=== PATIENT | female | born 1950 | race Two or more races ===

== ENCOUNTER 2020-12-20 02:32 | Inpatient (IN) | payer MEDICARE ==
[~2020-12-20] VITALS: Ht 157.5 cm; Wt 53.5 kg
--- NOTE | 2020-12-20 06:23 | NUR ---
GPS RN-NOTES: ADMITTED A 70-YR OLD FEMALE, FROM [facility]. ON VOLUNTARY STATUS. PATIENT STATES SHE WAS HAVING OUTBURST, AGGRESSIVE BEHAVIORS, AND SHE COULD NOT CONTROL HERSELF. UPON FACE TO FACE ASSESSMENT, PATIENT IS A/OX4, DEPRESSED, ANXIOUS, COOPERATIVE AND GUARDED. VERBALIZATION OF FEELINGS ENCOURAGED. DENIED SI/HI/AVH AT THIS TIME. PT'S RIGHTS HANDBOOK AND A GUIDE TO PRESCRIPTION MEDICATIONS GIVEN. IN NO APPARENT DISTRESS NOTED. BELONGINGS WERE INVENTORIED AND CHECKED FOR CONTRABAND. PT. IS UNDER THE PSYCHIATRIC CARE OF DR. VALDOVINOS ORDERS OBTAINED, AND UNDER THE MEDICAL CARE OF SAUL MAYERS. PT. REFUSED PNEUMONIA VACCINE WHEN OFFERED. OFFERED FLU VACCINE, PATIENT AGREED. WILL ENDORSE TO THE DAY SHIFT NURSE TO ADMINISTER VACCINATION. SKIN BODY ASSESSMENT DONE. DENIES PAIN/ DISCOMFORT AT THIS TIME. SAFETY PRECAUTIONS IN PLACE. BED LOCKED AND IN LOWEST POSITION. SIDE RAILS UP X2. WILL CONTINUE TO MONITOR Q15 MINS ROUNDS FOR SAFETY AND BEHAVIOR. ENDORSED TO THE DAY SHIFT NURSE FOR CONTINUITY OF ADMISSION PROCESS.
[2020-12-20 06:30] VITALS: BP 104/59
[2020-12-20] MEDS ORDERED: ACETAMINOPHEN 325 MG TABLET PO PRN (07:00)
[2020-12-20] MEDS ORDERED: MAG HYDROX/AL HYDROX/SIMETH 30 ML UDC PO PRN (07:00)
[2020-12-20] MEDS ORDERED: TEMAZEPAM 7.5 MG CAPSULE PO PRN (07:00)
--- NOTE | 2020-12-20 07:30 | NUR ---
RN NOTES PT AWAKE, WALKING ALONG THE HALLWAY WITH STEADY GAIT, ALERT AND VERBALLY RESPONSIVE, ABLE TO ANSWER ASSESSMENT QUESTION, CALM AND PLEASANT, NO BEHAVIOR PROBLEM NOTED, WILL CONTINUE TO MONITOR.
[2020-12-20 08:00] VITALS: BP 138/72
[2020-12-20] MEDS ORDERED: BLOOD SUGAR DIAGNOSTIC 1 EACH STRIP IN ONE (08:00)
[2020-12-20] MEDS ORDERED: TRAZ-252 PO (09:16)
[2020-12-20] MEDS ORDERED: MIRT15TA7 PO (09:16)
[2020-12-20] MEDS ORDERED: QUET25TA PO (09:16)
[2020-12-20] MEDS ORDERED: ESCI10TA PO (09:16)
[2020-12-20] MEDS ORDERED: INFLUENZA VACCINE 2020-21 0.5 ML DISP.SYRIN IM ONE (10:30)
[2020-12-20] MEDS ORDERED: TEMAZEPAM 15 MG CAPSULE PO PRN (13:30)
[2020-12-20] MEDS: SERTRALINE HCL 50 MG TABLET PO SCH (14:23)
[2020-12-20] MEDS: MAGNESIUM HYDROXIDE 30 ML UDC PO PRN ×2 (14:26→14:27)
--- NOTE | 2020-12-20 14:50 | NUR ---
RN-CO: NOTIFIED DR MANNING REGARDING CONSULT , ORDERED BY DR CANO.
--- NOTE | 2020-12-20 15:17 | NUR ---
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 Dr Sanders who is covering for Dr Duncan seen the patient and evaluate her. During face to face interview, she said that she is not depressed but just anxious. She is worried about her son who lost his benefits from workers compensation. Patient also told Dr Sanders that since she was on Seroquel her problem on twitching on her upper and lower extremities began, also she has problem sleeping. Her affect is appropriate, she is alert and oriented in all spheres, She denied being a smoker and alcohol drinker. "Never in my life I take drugs, alcohol and smoke." She said. All her belongings were screen for contraband, skin check was done and I advised her of her rights as a patient. Dr Childress made his dictation as well.
[2020-12-20 16:00] VITALS: BP 90/54
--- NOTE | 2020-12-20 18:07 | NUR ---
RN NOTES PT IN BED, AWAKE, ALERT AND VERBALLY RESPONSIVE, LIKES TO WALK ALONG THE HALLWAY AT TIMES, NO COMPLAINT AT THIS TIME, INTERACTS WITH STAFF AND OTHER PATIENTS, COMPLIANT WITH MEDICATIONS, INITIALLY REQUESTED FOR A FLU VACCINE BUT REFUSED IT AFTERWARDS, STATED THAT SHE IS AFRAID THAT SHE MIGHT HAVE SIDE EFFECTS, NEEDS ATTENDED, WITH COMPLAINT OF ANXIETY BUT DOES NOT WANT TO TAKE ATIVAN AT THIS TIME, PM MEDS GIVEN.
[2020-12-20 20:30] VITALS: BP 107/60
--- NOTE | 2020-12-20 21:57 | NUR ---
PT RECEIVED AWAKE AND IN BED, ALERT AND ORIENTED X3, DENIES ANY PAIN OR DISCOMFORT. ABLE TO AMBULATE WITH STEADY GAIT, BREATHING IS UNLABORED. PATIENT REQUESTING TO HAVE RESTORIL DC'D STATES SHE IS VERY AFRAID OF POSSIBLE SIDE EFFECTS, WANTS AMBIEN INSTEAD IT HAS HELPED HER IN THE PAST. FIRE EXTINGUISHER REPAIRER INSPECTOR NOTIFIED SANDRA MONTERO ORDERED. PATIENT HAS MILD ANXIETY, DENIES ANY SI/HI/AH/VH AT THIS TIME. PT EDUCATED ON THE USE OF THE CALL LIGHT, BED IN LOWEST POSITION, LOCKED. WILL CONTINUE MONITORING Q15 MIN WITH THE HELP OF STAFF TO MAINTAIN SAFETY.
[2020-12-20] MEDS: ZOLPIDEM TARTRATE 5 MG TABLET PO PRN (22:32)
--- NOTE | 2020-12-20 22:33 | NUR ---
PATIENT REQUESTED SANDRA ASIF FOR INSOMNIA. MEDICATION GIVEN PER ORDERS, PT EDUCATED ON POSSIBLE SIDE EFFECTS. SAFETY PRECAUTIONS IN PLACE. WILL CONTINUE MONITORING CLOSELY.
[2020-12-21] MEDS: ZOLPIDEM TARTRATE 5 MG TABLET PO PRN ×2 (01:16→23:44)
--- NOTE | 2020-12-21 01:17 | NUR ---
PATIENT REQUESTED 2ND DOSE OF AMBIEN 5MG, STATES SHE WAS ABLE TO SLEEP FOR A LITTLE WHILE WITH FIRST DOSE. MEDICATION ADMINISTERED PER ORDERS, WILL CONTINUE MONITORING CLOSELY. SAFETY PRECAUTIONS MAINTAINED.
[2020-12-21 07:03] LABS: BASOPHILS # (AUTO) 0.1 /CMM (0.0-0.2); BASOPHILS % (AUTO) 0.8 % (0.0-2.0); EOSINOPHILS % (AUTO) 3.3 % (0.0-6.0); HEMATOCRIT 34 % (33-45); HEMOGLOBIN 11.4 g/dL (11.5-14.8); LYMPHOCYTES # (AUTO) 2.1 /CMM (0.8-4.8); LYMPHOCYTES % (AUTO) 33.9 % (20.0-44.0); MEAN CORPUSCULAR HGB CONC 34 g/dl (31.0-36.0); MEAN CORPUSCULAR VOLUME 91 fL (82-100); MONOCYTES # (AUTO) 0.5 /CMM (0.1-1.30); MONOCYTES % (AUTO) 8.5 % (2.0-12.0); NEUTROPHILS # (AUTO) 3.3 /CMM (1.8-8.9); NEUTROPHILS % (AUTO) 53.5 % (43.0-81.0); PLATELET COUNT (AUTO) 252 /CMM (150-450); RED BLOOD CELL COUNT(AUTO) 3.73 MIL/uL (4.0-5.2); WHITE BLOOD COUNT (AUTO) 6.2 K/uL (4.3-11.0)
[2020-12-21 07:15] LABS: CALCIUM, SERUM 8.3 mg/dL (8.5-10.1); CREATININE 0.7 mg/dL (0.6-1.3); POTASSIUM 3.7 mmol/L (3.5-5.1)
[2020-12-21 08:00] VITALS: BP 121/68
[2020-12-21] MEDS: SERTRALINE HCL 50 MG TABLET PO SCH (08:35)
[2020-12-21] MEDS: LORAZEPAM 0.5 MG TABLET PO PRN ×2 (11:18→17:57)
[2020-12-21 16:00] VITALS: BP 121/80
[2020-12-21 20:59] VITALS: BP 120/68
--- NOTE | 2020-12-22 04:24 | NUR ---
23:44 Patient c/o difficulty falling asleep,requested and given Ambien 5 mg PO with good effect.
[2020-12-22 08:00] VITALS: BP 102/61
[2020-12-22] MEDS: SERTRALINE HCL 50 MG TABLET PO SCH (09:19)
[2020-12-22] MEDS: LORAZEPAM 0.5 MG TABLET PO PRN ×2 (11:28→23:34)
--- NOTE | 2020-12-22 14:45 | NUR ---
Family Contact: OLIVIA called the pts daughter, Latia Crouch ([phone]), and discussed the pts treatment plan and discharge plan. OLIVIA informed her that the pt was added on a new medication and that the MD may make more changes which means the pt should remain in the hospital until she is stable from those changes. OLIVIA also informed her that a neurology consult was placed and that the neurologist will evaluate the pt as she has involuntary movements. OLIVIA inquired about the pts current living situation and was assured to be a safe discharge location for the pt.
[2020-12-22 16:00] VITALS: BP 126/75
--- NOTE | 2020-12-22 19:25 | NUR ---
PT RECEIVED IN AMBULATING IN THE HALLS WITH A STEADY GAIT. AOX4, ZULETA AND RESPIRATIONS EVEN AND UNLABORED. PT ANXIOUS ABOUT TAKING ZOLOFT DUE TO THE INCREASE IN DOSAGE. STATES " I DON'T WANT TO TAKE THE MEDICINE BUT I DON'T WANT TO BE NON COMPLIANT. EXPLAINED TO PT THAT SHE WILL NOT BE GIVEN OR FORCED TO TAKE MEDS. PT STATES SHE WILL THINK IT OVER.
[2020-12-22 20:10] VITALS: BP 125/74
--- NOTE | 2020-12-22 21:20 | NUR ---
S/W PT'S DAUGHTER REGARDING ZOLOFT. DAUGHTER STATED THAT HER MOTHER HAS THE RIGHT TO REFUSE MEDS AND WILL SPEAK TO THE DOCTOR IN THE MORNING. INFORMED DAUGHTER THAT I SPOKE TO PT REGARDING MEDS. PT IS ANXIOUS ABOUT TAKING ZOLOFT AND REFUSING AT THIS TIME.
[2020-12-22] MEDS ORDERED: SERTRALINE HCL 50 MG TABLET PO SCH (22:00)
--- NOTE | 2020-12-22 22:30 | NUR ---
PT CONTINUES TO STATED I DON'T WANT TO BE NON COMPLIANT BUT I DON'T WANT TO TAKE THE INCREASED DOSE OF ZOLOFT. ASKED PT WHAT DOSAGE SHE WOULD BE COMFORTABLE TAKING. NO RESPONSE NOTED. PT REQUESTED ATIVAN AND WAS GIVEN PER MD ORDER.
--- NOTE | 2020-12-23 06:49 | NUR ---
PT AOX4, ZULETA, RESPIRATIONS EVEN AND UNLABORED. AMBULATES IN HALLS WITH A STEADY GAIT. DENIES PAIN AND DISCOMFORT. PT STATES THAT SHE WILL TAKE ZOLOFT THIS AM. SAFETY MAINTAINED AND FREE FROM INJURY.
[2020-12-23 08:00] VITALS: BP 126/68
[2020-12-23] MEDS ORDERED: SERTRALINE HCL 50 MG TABLET PO SCH (09:00)
--- NOTE | 2020-12-23 09:13 | NUR ---
Initial Discharge Plan: Pt currently resides at her home located at [address] [place] [address] with her , Elian ([phone]). Per pt, she would like to be discharged back to her home. OLIVIA will work with the pt and the MD regarding appropriate discharge planning. SW will form a safe and proper discharge.
[2020-12-23] MEDS: SERTRALINE HCL 50 MG TABLET PO SCH (10:02)
[2020-12-23] MEDS: MAGNESIUM HYDROXIDE 30 ML UDC PO PRN (10:02)
--- NOTE | 2020-12-23 13:10 | NUR ---
Family Contact: SW called the pts daughter, Latia Crouch ([phone]), and informed her that the pt had a neurology consult today. SW informed her that the pt appears to be in distress and the SW observed her to be moving restlessly in her bedroom. Pts daughter stated that the pt needs to be discharged and that she needs to speak to the MD. SW stated that she will send a message.
[2020-12-23 16:00] VITALS: BP 132/80
--- NOTE | 2020-12-23 19:31 | NUR ---
PT RECEIVED AMBULATING IN THE ROOM WITH A STEADY GAIT. AOX4, CALM AND COOPERATIVE. ALLOWED LAB TO DRAW TSH LEVEL. PT DOESN'T APPEAR ANXIOUS. REQUESTING SLEEPING AT 2300. STATES " I DON'T FEEL DEPRESSED TODAY. DENIES PAIN AND DISCOMFORT. WILL CONTINUE TO MONITOR.
[2020-12-23 19:53] VITALS: BP 136/75
[2020-12-23] MEDS: LORAZEPAM 0.5 MG TABLET PO PRN (22:02)
--- NOTE | 2020-12-24 05:54 | NUR ---
PT AOX4,ZULETA, AMBULATES IN THE HALLS WITH A STEADY GAIT, RESPIRATIONS EVEN AND UNLABORED. PT VERBALIZES FEELING BETTER AND DOESN'T APPEAR TO BE ANXIOUS. CALM, COOPERATIVE AND COMMUNICATING WELL WITH PATIENTS. DENIES SI AND HI. SAFETY MAINTAINED. NO C/O PAIN OR DISCOMFORT.
[2020-12-24 08:00] VITALS: BP 144/77
[2020-12-24] MEDS: SERTRALINE HCL 50 MG TABLET PO SCH (09:00)
--- NOTE | 2020-12-24 14:08 | NUR ---
Family Contact: Pts daughter, Latia Crouch ([phone]), called the SW and stated that she really needs to speak to the MD and wants the pt to be discharged soon. SW stated that she will message the MD again.
--- NOTE | 2020-12-24 15:18 | NUR ---
Family Contact: OLIVIA called the pts daughter, Latia Crouch ([phone]), and informed her that the pt is being discharged against medical advice. She stated that her father was already on the way to chart picker the pt.
--- NOTE | 2020-12-24 15:28 | NUR ---
Discharge Note: Pt will be discharged against medical advice back to her home located at [address] [place] [id number]. Pt will be picked up by her , Elian ([phone]), around 4pm. Upon discharge, the pt appears to be in an anxious mood and presents with a distressed affect. Pt appears to be alert and oriented x4 (time, place, self and situation). Pt denies both suicidal and homicidal ideation as well as auditory and visual hallucinations. Pt appears to be well groomed and appropriately dressed. Pt appears to be ambulatory with a steady gait. Pt will follow up with her psychiatrist, Dr. Hsieh, located at [address], [place] [address]; . Pt will also follow up with her nike athlete, Dr. Greenberg, located at [address] [facility] [place] [address]; . The multidisciplinary exit care form were done, printed, signed, and given to the patient.
--- NOTE | 2020-12-24 15:33 | NUR ---
Outpatient Psychiatrist Contact: OLIVIA faxed medical records to the pts outpatient psychiatrist, Dr Hsieh, to the fax number: [phone].
[2020-12-24 16:00] VITALS: BP 127/59
--- NOTE | 2020-12-24 16:30 | NUR ---
Discharge education and paperwork provided to patient. Pt verbalized understanding.Belongings inventory signed by patient. All belongings accounted for. Home medication, Zoloft, called into [facility] pharmacy of pt's choice. Education provided to pt regarding use of medication, possible interactions, and potential side effects. Pt verbalized understanding. Pt's daughter made aware of pt's pending discharge. Patient awaiting to pick her up for discharge.
--- NOTE | 2020-12-24 16:50 | NUR ---
Pt escorted to main entrance in stable condition to be discharged home with who is picking her up. Pt released to . Discharge education provided to pt and , including importance of med compliance. Pt and her verbalized understanding.
== END 2020-12-24 17:10 | disposition home or self-care (01) | DRG 885 ==
LOC: GPS 05:54
PROVIDERS: ADMIT Psychiatry & Neurology Psychiatry; ATTEND Nurse Practitioner Acute Care
DX: F33.1 Major depressive disorder, recurrent, moderate (principal); F41.9 Anxiety disorder, unspecified; Z90.710 Acquired absence of both cervix and uterus; Z79.899 Other long term (current) drug therapy; G31.84 Mild cognitive impairment of uncertain or unknown etiology; F29 Unspecified psychosis not due to a substance or known physiological condition; F39 Unspecified mood [affective] disorder; R25.9 Unspecified abnormal involuntary movements; G47.00 Insomnia, unspecified
CPT/HCPCS: 36415; 80048-TC; 80061-TC; 82962-TC; 84443-TC; 85025-TC; 87081-TC